=== PATIENT | male | born 1965 | race African-American/Black ===

== ENCOUNTER 2025-06-21 02:39 | Emergency (ER) | payer MEDICAID ==
[~2025-06-21] VITALS: Ht 175.3 cm; Wt 84.0 kg
[2025-06-21 02:48] VITALS: O2SAT 98
[2025-06-21] MEDS: KETOROLAC 30MG/ML VIAL IM ONE (03:43)
[2025-06-21 04:22] VITALS: BP 170/94; PULSE 95; RESP 19; TEMP 36.6; O2SAT 98
[2025-06-21 06:06] LABS: CLARITY URINE TURBID (CLEAR); COLOR URINE BLOODY (YELLOW)
[2025-06-21 06:07] LABS: PH URINE 7.0 (4.5-8.0); SPECIFIC GRAVITY URINE 1.010 (1.005-1.030)
[2025-06-21 06:09] LABS: GLUCOSE URINE TRACE (NEGATIVE); KETONES URINE 1+ (NEGATIVE); PROTEIN URINE 3+ (NEGATIVE)
[2025-06-21 06:10] LABS: NITRITE URINE POSITIVE (NEGATIVE); OCCULT BLOOD URINE 3+ (NEGATIVE); UROBILINOGEN URINE 4.0 E.U./dL (0.2-1.0)
[2025-06-21 06:11] LABS: LEUKOCYTE ESTERASE URINE 2+ (NEGATIVE)
[2025-06-21 06:20] LABS: RBC URINE TNTC /hpf (0-2); SQUAMOUS EPITHELIAL CELL URINE NONE SEEN /lpf (RARE/1+); WBC URINE NONE SEEN /hpf (0-2)
[2025-06-21 06:21] LABS: BACTERIA URINE NONE SEEN
== END 2025-06-21 04:30 | disposition home or self-care (01) ==
LOC: ER 02:39
DX: R33.8 Other retention of urine (principal); I10 Essential (primary) hypertension; N40.1 Benign prostatic hyperplasia with lower urinary tract symptoms
CPT/HCPCS: 99284; 81003; 51702; 96372; J1885

== ENCOUNTER 2025-10-30 08:13 | Emergency (ER) | payer OTHER ==
[~2025-10-30] VITALS: Ht 175.3 cm; Wt 82.0 kg
[2025-10-30 08:19] VITALS: O2SAT 99
[2025-10-30 08:47] VITALS: TEMP 37.2; O2SAT 99
[2025-10-30 08:58] LABS: BASOPHILS % 0.7 % (0.0-2.0); EOSINOPHILS % 1.3 % (0.0-5.0); HEMATOCRIT. 48.7 % (42.0-52.0); HEMOGLOBIN. 16.3 g/dL (14.0-18.0); LYMPHOCYTES % 10.0 % (20.0-50.0); MEAN PLATELET VOLUME 9.2 fl (7.4-10.4); MONOCYTES % 4.6 % (2.0-8.0); NEUTROPHILS % 83.4 % (40.0-76.0); PLATELET 245 x1000/uL (130-400); RED BLOOD CELL COUNT 5.41 mill/uL (4.7-6.1); RED CELL DISTRIBUTION WIDTH 13.6 % (11.6-14.6)
[2025-10-30 09:15] LABS: CREATININE 1.6 mg/dL (0.6-1.3); UREA NITROGEN BLOOD 15.0 mg/dL (9-23)
[2025-10-30] MEDS: HYDROCHLOROTHIAZIDE 25MG TABLET PO ONE (09:37)
[2025-10-30] MEDS: LISINOPRIL 20MG TABLET PO ONE (09:37)
[2025-10-30 09:38] VITALS: BP 163/103; PULSE 97; RESP 19
[2025-10-30] MEDS: KETOROLAC 30MG/ML VIAL IV ONE (09:38)
[2025-10-30 10:20] LABS: CLARITY URINE CLEAR (CLEAR); COLOR URINE YELLOW (YELLOW); GLUCOSE URINE NEGATIVE (NEGATIVE); KETONES URINE NEGATIVE (NEGATIVE); LEUKOCYTE ESTERASE URINE NEGATIVE (NEGATIVE); NITRITE URINE NEGATIVE (NEGATIVE); OCCULT BLOOD URINE 1+ (NEGATIVE); PH URINE 7.0 (4.5-8.0); PROTEIN URINE TRACE (NEGATIVE); SPECIFIC GRAVITY URINE 1.008 (1.005-1.030); UROBILINOGEN URINE 0.2 E.U./dL (0.2-1.0)
[2025-10-30 10:43] LABS: SQUAMOUS EPITHELIAL CELL URINE RARE /lpf (RARE/1+)
[2025-10-30 10:45] LABS: BACTERIA URINE NONE SEEN; WBC URINE 0-2 /hpf (0-2)
[2025-10-30] MEDS ORDERED: LISINOPRIL 40MG TABLET PO ONE (11:15)
== END 2025-10-30 11:56 | disposition left against medical advice (07) ==
LOC: ER 08:13
DX: R10.24 Suprapubic pain (principal); I10 Essential (primary) hypertension; N40.1 Benign prostatic hyperplasia with lower urinary tract symptoms; Z55.6 Problems related to health literacy; Z87.442 Personal history of urinary calculi
CPT/HCPCS: 80048; 81003; 85025; 36415; 96374; 99284; J1885; Z7610; A4606